=== PATIENT | male | born 1980 | race Caucasian/White ===

== ENCOUNTER 2018-05-10 17:57 | Emergency (ER) | payer OTHER ==
[~2018-05-10] VITALS: Ht 165.1 cm; Wt 70.3 kg
[~2018-05-10 17:57] MED LIST: BACTRIM DS TAB1 EACH PO; HYDROCODONE-AP1 EAC6 PO; KEFLEX500 M1 PO
[2018-05-10] MEDS ORDERED: BACTRIM DS TAB1 EACH PO (18:37)
[2018-05-10] MEDS ORDERED: KEFLEX500 M1 PO (18:37)
[2018-05-10 18:46] VITALS: BP 114/67
== END 2018-05-10 18:47 | disposition home or self-care (01) ==
LOC: M.ERS 17:57
DX: L03.116 Cellulitis of left lower limb (principal); L02.416 Cutaneous abscess of left lower limb